=== PATIENT | female | born 1960 | race African-American/Black ===

== ENCOUNTER 2017-04-28 16:28 | Emergency (ER) | payer OTHER ==
[~2017-04-28] VITALS: Ht 154.9 cm; Wt 92.5 kg
--- NOTE | ~2017-04-28 | EKG ---
[place] [address] [employer] [facility] [place] [address] ELECTROCARDIOGRAM REPORT Name: REBECCA REID Room #: [facility] ARIA Mcnally#: [id number] Admission: 04/28/17 Attend Phys: Discharge: 04/28/17 Date of : 58 Report #: [id number] THIS REPORT FOR: //name// [facility] ED Test Date: 2017-04-28 Test Time: 19:07:30 Pat Name: REBECCA REID Department: Room: Gender: F Log Sawyer: MAGGIE : 1960 Requested By: Pati Pereyra Order Number: [id number] MD: Hakeem Minor Measurements Intervals [place] Rate: 82 P: 43 IA: 178 QRS: 8 QRSD: 118 T: 125 QT: 412 QTc: 482 Interpretive Statements Sinus rhythm Incomplete left bundle branch block LVH with secondary repolarization abnormality Compared to ECG 04/28/2017 16:54:41 Left bundle-branch block now present Early repolarization now present T-wave abnormality no longer present Possible ischemia no longer present Electronically Signed On 04-29-2017 8:12:30 CDT by Hakeem Minor [email or web address] <ELECTRONICALLY SIGNED> By: Hakeem Minor MD 04/29/17 0812 06 06 Hakeem Minor MD /EPI
--- NOTE | ~2017-04-28 | EKG ---
[address] [place] [address] ELECTROCARDIOGRAM REPORT Name: REBECCA REID Room #: [facility] M.R.#: [id number] Admission: Attend Phys: Discharge: Date of : 58 Report #: [id number] THIS REPORT FOR: //name// [facility] ED Test Date: 2017-04-28 Test Time: 16:54:41 Pat Name: REBECCA REID Department: Room: Gender: F [employer]: MAGGIE : 1960 Requested By: Pati Pereyra Order Number: [id number] MD: Hakeem Minor Measurements Intervals [place] Rate: 80 P: 42 MD: 166 QRS: 15 QRSD: 124 T: 118 QT: 397 QTc: 458 Interpretive Statements Sinus rhythm Probable left ventricular hypertrophy Abnormal T, consider ischemia, lateral leads No previous ECG available for comparison Electronically Signed On 04-28-2017 17:10:26 CDT by Hakeem Minor [email or web address] <ELECTRONICALLY SIGNED> By: Hakeem Minor MD 04/28/17 1710 1654 1654 Hakeem Minor MD /IVET
[~2017-04-28 16:28] MED LIST: AMBEREN; AMLODIPINE; DIAZIDE; HIV MEDS; LEVOTHROID; MEDROLDOSEPACK PO; NEXIUM; POTASSIUM20
[2017-04-28 17:15] LABS: ABSOLUTE NEUTROPHILS 5.9 thou/uL (1.4-8.2); BASOPHILS 0.7 % (0.0-2.0); HEMATOCRIT 38.3 % (37.0-47.0); HEMOGLOBIN 12.7 gm/dL (12.0-15.0); LYMPHOCYTES 32.5 % (24.0-44.0); MANUAL DIFF NO; MCH 28.7 pg (26.0-34.0); MCHC 33.3 g/dL (28.0-37.0); MCV 86.2 fL (80.0-100.0); MONOCYTES 9.3 % (1.0-8.0); PLATELET COUNT 318 thou/uL (150-400); POLYS 54.5 % (36.0-66.0); RBC 4.44 mil/uL (4.20-5.00); RDW 14.6 % (10.5-14.5); WBC 10.8 thou/uL (4.0-11.0)
[2017-04-28 17:24] LABS: ANION GAP 9 mmol/L (7-16); BUN 14 mg/dL (7-18); CALCIUM 9.9 mg/dL (8.5-10.1); CHLORIDE 105 mmol/L (98-107); CO2 28 mmol/L (21-32); GLUCOSE 122 mg/dL (74-106); POTASSIUM 3.5 mmol/L (3.5-5.1); SODIUM 142 mmol/L (136-145)
[2017-04-28 17:36] LABS: NT-PRO BRAIN NAT PEPTIDE 25 pg/mL (<300); TROPONIN-I < 0.04 ng/mL (<0.04-0.07)
[2017-04-28] MEDS ORDERED: PROMETHAZINE-C120 ML PO (19:29)
[2017-04-28 19:36] VITALS: BP 145/88
== END 2017-04-28 19:38 | disposition home or self-care (01) ==
LOC: ER 16:28
PROVIDERS: Emergency Medicine
DX: R07.89 Other chest pain (principal); J45.909 Unspecified asthma, uncomplicated; E11.9 Type 2 diabetes mellitus without complications; I25.10 Atherosclerotic heart disease of native coronary artery without angina pectoris; Z79.4 Long term (current) use of insulin; Z91.013 Allergy to seafood

== ENCOUNTER 2018-05-25 19:08 | Emergency (ER) | payer OTHER ==
[~2018-05-25] VITALS: Ht 154.9 cm; Wt 92.5 kg
[~2018-05-25 19:08] MED LIST changes: +PROMETHAZINE-C120 ML PO
[2018-05-25] MEDS ORDERED: ALEVE220 MG PO (20:07)
[2018-05-25] MEDS ORDERED: COLCHICINE0.6 MG PO (20:07)
[2018-05-25 20:44] VITALS: BP 145/87
== END 2018-05-25 20:51 | disposition home or self-care (01) ==
LOC: ER 19:08
DX: M10.9 Gout, unspecified (principal); J45.909 Unspecified asthma, uncomplicated; E11.9 Type 2 diabetes mellitus without complications; I25.10 Atherosclerotic heart disease of native coronary artery without angina pectoris; Z21 Asymptomatic human immunodeficiency virus [HIV] infection status; Z88.8 Allergy status to other drugs, medicaments and biological substances; Z91.013 Allergy to seafood

== ENCOUNTER 2018-12-13 08:03 | Emergency (ER) | payer OTHER ==
[~2018-12-13] VITALS: Ht 154.9 cm; Wt 92.5 kg
[~2018-12-13 08:03] MED LIST changes: +ALEVE220 MG PO; +COLCHICINE0.6 MG PO
[2018-12-13 08:07] VITALS: BP 137/84
== END 2018-12-13 09:00 | disposition home or self-care (01) ==
LOC: ER 08:03
DX: M79.672 Pain in left foot (principal); J45.909 Unspecified asthma, uncomplicated; E11.9 Type 2 diabetes mellitus without complications; I25.10 Atherosclerotic heart disease of native coronary artery without angina pectoris; Z91.013 Allergy to seafood; Z88.8 Allergy status to other drugs, medicaments and biological substances